=== PATIENT | female | born 1970 | race Hispanic/Latino ===

== ENCOUNTER 2020-02-21 10:20 | Inpatient (IN) | payer OTHER, SELFPAY ==
[~2020-02-21] VITALS: Ht 160 cm; Wt 74.0 kg
[2020-02-21] MEDS ORDERED: CEFTRIAXONE SODIUM 1 GM ONE (11:03)
[2020-02-21] MEDS ORDERED: AZITHROMYCIN 250 MG TABLET PO ONE (11:04)
[2020-02-21] MEDS ORDERED: ACETAMINOPHEN EXTRA STRENGTH 500 MG TABLET ONE (11:04)
[2020-02-21] MEDS ORDERED: LACTATED RINGERS 1000ML 1,000 ML IV SCH (13:09)
[2020-02-21] MEDS ORDERED: AZITHROMYCIN 500MG+NS 250ML 250 ML IV SCH (13:15)
[2020-02-21] MEDS ORDERED: ACETAMINOPHEN 325 MG TAB PO PRN (13:15)
[2020-02-21] MEDS ORDERED: DiphenhydrAMINE HCL 50 MG/ML VIAL IV PRN (13:15)
[2020-02-21] MEDS ORDERED: DIPHENHYDRAMINE HCL 25 MG CAPSULE PO PRN (13:15)
[2020-02-21] MEDS ORDERED: ONDANSETRON HCL 4 MG/2 ML VIAL IV PRN (13:15)
[2020-02-21] MEDS ORDERED: LACTULOSE 20 GM/30 ML UDCUP PO PRN (13:15)
[2020-02-21] MEDS: CEFTRIAXONE SODIUM 1 GM IV SCH (13:15)
[2020-02-21] MEDS ORDERED: NITROGLYCERIN 0.4 MG SL TAB SL PRN (13:15)
[2020-02-21] MEDS ORDERED: MAG HYDROX/AL HYDROX/SIMETH ES 30 ML SUSP UDCUP PO PRN (13:15)
[2020-02-21] MEDS ORDERED: ERGOCALCIFEROL (VITAMIN D2) 50,000 UNIT CAPSULE PO SCH (13:30)
[2020-02-21] MEDS ORDERED: ENOXAPARIN SODIUM 40 MG/0.4 ML SYRINGE SQ ONE (14:29)
[2020-02-21] MEDS ORDERED: METHYLPREDNISOLONE SOD SUCC 40MG/ML 1ML ONE ×2 (15:30→21:15)
[2020-02-21] MEDS ORDERED: ONDANSETRON HCL 4 MG/2 ML VIAL ONE (18:19)
[2020-02-22] MEDS ORDERED: LACTATED RINGERS 1000ML 1,000 ML IV ONE (05:32)
[2020-02-22] MEDS ORDERED: METHYLPREDNISOLONE SOD SUCC 40MG/ML 1ML ONE ×4 (05:32→20:40)
[2020-02-22] MEDS ORDERED: AZITHROMYCIN 500MG+NS 250ML 250 ML IV ONE (08:11)
[2020-02-22] MEDS ORDERED: CEFTRIAXONE SODIUM 1 GM ONE ×2 (08:11→20:40)
[2020-02-22] MEDS ORDERED: SODIUM CHLORIDE 0.9% 100 ML IV ONE (08:11)
[2020-02-22] MEDS ORDERED: ENOXAPARIN SODIUM 40 MG/0.4 ML SYRINGE SQ ONE (12:04)
[2020-02-22] MEDS ORDERED: DOXYCYCLINE HYCLATE 100 MG TABLET PO ONE ×2 (12:08→20:40)
[2020-02-22] MEDS: CEFTRIAXONE SODIUM 1 GM IV SCH (13:15)
--- NOTE | 2020-02-22 17:59 | NUR ---
INITIAL SW spoke to patient. Patient lives with spouse, Moustapha Cuellar, [phone]. She has no home services or DME. 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 Patient is able to complete ADL's independently and drives. PCP is MD at [facility]. Pharmacy is [facility]. Patient has no insurance or benefits. He is not a [place] citizen but is a legal resident. Patient was educated on [employer] $4 medication program and [employer] $5 medication program. Patient is being assisted by [facility] for financial matters. Addendum: 02/22/20 at 1802 by AARON JOINER Amended: Links added.
[2020-02-22] MEDS ORDERED: FAMOTIDINE/PF 20 MG/2 ML VIAL IV ONE (20:41)
[2020-02-23] MEDS ORDERED: DOXYCYCLINE HYCLATE 100 MG TABLET PO ONE (00:02)
[2020-02-23] MEDS ORDERED: METHYLPREDNISOLONE SOD SUCC 40MG/ML 1ML ONE ×2 (00:03→11:11)
[2020-02-23] MEDS ORDERED: METHYLPREDNISOLONE SOD SUCC 125MG/2ML VIAL ONE (05:39)
[2020-02-23] MEDS: ZINC SULFATE 220 CAPSULE PO SCH (09:00)
[2020-02-23] MEDS: LACTOBACILLUS RHAMNOSUS GG 1 EACH CAP.SPRINK PO SCH (09:00)
[2020-02-23] MEDS: ENOXAPARIN SODIUM 40 MG/0.4 ML SYRINGE SQ SCH ×2 (09:00→20:13)
[2020-02-23] MEDS: FAMOTIDINE/PF 20 MG/2 ML VIAL IV SCH ×2 (09:00→20:13)
[2020-02-23] MEDS: ASCORBIC ACID 500 MG TAB PO SCH (09:00)
[2020-02-23] MEDS: DOXYCYCLINE 100MG+NS 250ML 250 ML IV SCH ×2 (09:30→21:53)
[2020-02-23] MEDS ORDERED: ENOXAPARIN SODIUM 40 MG/0.4 ML SYRINGE SQ ONE (11:12)
[2020-02-23] MEDS ORDERED: CEFTRIAXONE SODIUM 1 GM ONE (11:12)
[2020-02-23] MEDS ORDERED: FAMOTIDINE/PF 20 MG/2 ML VIAL IV ONE (11:13)
[2020-02-23] MEDS: CEFTRIAXONE SODIUM 1 GM IV SCH (13:15)
[2020-02-23] MEDS: METHYLPREDNISOLONE SOD SUCC 40MG/ML 1ML IVP SCH ×2 (13:15→18:20)
[2020-02-23 19:24] VITALS: BP 104/68; PULSE 74; RESP 22; TEMP 98.3
[2020-02-23 19:30] VITALS: BP 115/82; PULSE 70; RESP 18; TEMP 98
[2020-02-23 23:00] VITALS: BP 109/70; PULSE 75; RESP 18; TEMP 98.2
[2020-02-24] VITALS (7 sets, daily range): BP systolic 103–124; BP diastolic 54–76; PULSE 63–88; RESP 18–20; TEMP 97.4–98.5
[2020-02-24] MEDS: CEFTRIAXONE SODIUM 1 GM IV SCH ×2 (01:15→13:15)
[2020-02-24] MEDS: ASCORBIC ACID 500 MG TAB PO SCH (09:00)
[2020-02-24] MEDS: ZINC SULFATE 220 CAPSULE PO SCH (09:56)
[2020-02-24] MEDS: FAMOTIDINE/PF 20 MG/2 ML VIAL IV SCH ×2 (09:56→20:14)
[2020-02-24] MEDS: LACTOBACILLUS RHAMNOSUS GG 1 EACH CAP.SPRINK PO SCH (09:56)
[2020-02-24] MEDS: ENOXAPARIN SODIUM 40 MG/0.4 ML SYRINGE SQ SCH (09:57)
[2020-02-24] MEDS: DOXYCYCLINE 100MG+NS 250ML 250 ML IV SCH ×2 (10:05→20:14)
[2020-02-24] MEDS: GUAIFENESIN-DM 200/20 MG 10 ML PO PRN ×2 (10:07→18:27)
[2020-02-24] MEDS ORDERED: ALBUTEROL INHALER 90MCG/INH IH PRN (11:00)
[2020-02-24] MEDS: METHYLPREDNISOLONE SOD SUCC 40MG/ML 1ML IVP SCH (20:14)
[2020-02-24] MEDS: GUAIFENESIN 600 MG TABLET.ER PO SCH (20:14)
[2020-02-25] VITALS (7 sets, daily range): BP systolic 109–134; BP diastolic 62–89; PULSE 64–85; RESP 18–24; TEMP 97.6–98.7
[2020-02-25] MEDS: CEFTRIAXONE SODIUM 1 GM IV SCH ×3 (01:16→23:43)
[2020-02-25] MEDS: METHYLPREDNISOLONE SOD SUCC 40MG/ML 1ML IVP SCH ×2 (07:30→20:52)
[2020-02-25] MEDS: GUAIFENESIN 600 MG TABLET.ER PO SCH ×2 (07:30→20:52)
[2020-02-25] MEDS: DOXYCYCLINE 100MG+NS 250ML 250 ML IV SCH ×2 (07:30→20:52)
[2020-02-25] MEDS: FAMOTIDINE/PF 20 MG/2 ML VIAL IV SCH ×2 (07:30→20:52)
[2020-02-25] MEDS: ENOXAPARIN SODIUM 40 MG/0.4 ML SYRINGE SQ SCH (07:30)
[2020-02-25] MEDS: ZINC SULFATE 220 CAPSULE PO SCH (07:30)
[2020-02-25] MEDS: ASCORBIC ACID 500 MG TAB PO SCH (07:31)
[2020-02-25] MEDS: LACTOBACILLUS RHAMNOSUS GG 1 EACH CAP.SPRINK PO SCH (07:31)
--- NOTE | 2020-02-25 07:45 | NUR ---
ASSESSMENT PT IS AAOX3 DENIES CP DENIES NV DENIES SOB WHILE AT REST, BREATHING PATTERN IS EVEN AND UNLABORED. AM MEDS GIVEN, CALL LIGHT WITHIN REACH.
--- NOTE | 2020-02-25 13:00 | NUR ---
STATUS SITTING UP IN CHAIR, EATING LUNCH NO COMPLAINTS AT THIS TIME. CALL LIGHT WITHIN REACH.
[2020-02-26] VITALS (7 sets, daily range): BP systolic 114–124; BP diastolic 67–88; PULSE 61–82; RESP 18–20; TEMP 97.4–98.5
[2020-02-26] MEDS: FAMOTIDINE/PF 20 MG/2 ML VIAL IV SCH ×2 (08:54→20:16)
[2020-02-26] MEDS: GUAIFENESIN 600 MG TABLET.ER PO SCH ×2 (08:55→20:16)
[2020-02-26] MEDS: METHYLPREDNISOLONE SOD SUCC 40MG/ML 1ML IVP SCH ×2 (08:55→20:16)
[2020-02-26] MEDS: ZINC SULFATE 220 CAPSULE PO SCH (08:55)
[2020-02-26] MEDS: LACTOBACILLUS RHAMNOSUS GG 1 EACH CAP.SPRINK PO SCH (08:55)
[2020-02-26] MEDS: ASCORBIC ACID 500 MG TAB PO SCH (08:55)
[2020-02-26] MEDS: ENOXAPARIN SODIUM 40 MG/0.4 ML SYRINGE SQ SCH (08:59)
[2020-02-26] MEDS: DOXYCYCLINE HYCLATE 100 MG TABLET PO SCH ×2 (08:59→20:16)
--- NOTE | 2020-02-26 13:19 | NUR ---
DC PLAN GAVE PATIENT INFO REGARDING NEED FOR 02. NOW THE ONLY PLACE FOUND FOR SELF PAY IS 250 A MONTH. SAID SHE NEEDS TO TALK TO FAMILY AND FRIENDS TO SEE IF THEY CAN COME UP WITH THE [facility]. LET FAITH PATIÑO AND JENNIFER DIRECTOR KNOW OF CONVERSATION. TOLD PATIENT TO LET NURSE KNOW IF OKAY TO SEND REFERRAL. CM WILL CONTINUE TO FOLLOW. Addendum: 02/26/20 at 1320 by LINDA MORE RN CM Amended: Links added.
--- NOTE | 2020-02-26 14:53 | NUR ---
DC PLAN PATIENT STILL HAS NOT MADE UP MIND REGARDING 02. ASKED NURSE TO ASK PATIENT WHEN THEY GO BACK IN IF THEY FOUND SUPPORT FOR THE 250. CM WILL CONTINUE TO FOLLOW.
[2020-02-26] MEDS: CEFTRIAXONE SODIUM 1 GM IV SCH (15:08)
[2020-02-27] MEDS: CEFTRIAXONE SODIUM 1 GM IV SCH (00:44)
[2020-02-27 04:12] VITALS: BP 124/62; PULSE 64; RESP 20; TEMP 97.9
[2020-02-27 08:00] VITALS: BP 111/71; PULSE 65; RESP 18; TEMP 97.7
[2020-02-27] MEDS: GUAIFENESIN 600 MG TABLET.ER PO SCH ×2 (08:57→21:41)
[2020-02-27] MEDS: ASCORBIC ACID 500 MG TAB PO SCH (08:57)
[2020-02-27] MEDS: FAMOTIDINE/PF 20 MG/2 ML VIAL IV SCH ×2 (08:57→21:42)
[2020-02-27] MEDS: ZINC SULFATE 220 CAPSULE PO SCH (08:57)
[2020-02-27] MEDS: DOXYCYCLINE HYCLATE 100 MG TABLET PO SCH (08:57)
[2020-02-27] MEDS: LACTOBACILLUS RHAMNOSUS GG 1 EACH CAP.SPRINK PO SCH (08:57)
[2020-02-27] MEDS: METHYLPREDNISOLONE SOD SUCC 40MG/ML 1ML IVP SCH ×2 (08:58→21:42)
[2020-02-27] MEDS: ENOXAPARIN SODIUM 40 MG/0.4 ML SYRINGE SQ SCH (08:59)
--- NOTE | 2020-02-27 09:42 | NUR ---
DC PLAN VISITED WITH PATIENT. PATIENT SAID NOT ABLE TO AFFORD 02. SPOKE TO FAITH SAID TO RE EVAL FOR HOME O2. ORDER PLACED. Addendum: 02/27/20 at 0944 by LINDA MORE RN CM Amended: Links added.
[2020-02-27 12:00] VITALS: BP 102/61; PULSE 70; RESP 18; TEMP 98.1
[2020-02-27 15:30] VITALS: BP 131/66; PULSE 78; RESP 18; TEMP 98.4
[2020-02-27 19:55] VITALS: PULSE 88; RESP 20
[2020-02-27 20:00] VITALS: BP 129/56; PULSE 76; RESP 19; TEMP 98.1
[2020-02-28] VITALS (8 sets, daily range): BP systolic 94–118; BP diastolic 44–77; PULSE 59–84; RESP 18–20; TEMP 97.6–98.2
--- NOTE | 2020-02-28 05:20 | NUR ---
PT IS LAYING IN BED, WITH NO CONCERNS OR COMPLAINTS. PT IS AOX3 AND WITHOUT PAIN. WILL CONTINUE TO MONITOR
[2020-02-28] MEDS: LACTOBACILLUS RHAMNOSUS GG 1 EACH CAP.SPRINK PO SCH (08:58)
[2020-02-28] MEDS: FAMOTIDINE/PF 20 MG/2 ML VIAL IV SCH ×2 (08:58→20:55)
[2020-02-28] MEDS: ASCORBIC ACID 500 MG TAB PO SCH (08:58)
[2020-02-28] MEDS: METHYLPREDNISOLONE SOD SUCC 40MG/ML 1ML IVP SCH ×2 (08:58→20:55)
[2020-02-28] MEDS: GUAIFENESIN 600 MG TABLET.ER PO SCH ×2 (08:59→20:58)
[2020-02-28] MEDS: ZINC SULFATE 220 CAPSULE PO SCH (08:59)
[2020-02-28] MEDS: ENOXAPARIN SODIUM 40 MG/0.4 ML SYRINGE SQ SCH (09:00)
[2020-02-28] MEDS: ACETAMINOPHEN 325 MG TAB PO PRN (17:30)
[2020-02-29] VITALS (8 sets, daily range): BP systolic 91–106; BP diastolic 53–71; PULSE 58–78; RESP 18–20; TEMP 96.5–98
--- NOTE | 2020-02-29 04:52 | NUR ---
PT IS RESTING COMFORTABLY IN BED. PT HAS NO COMPLAINTS OF PAIN OR DISCOMFORT. PT IS AWAITING DISCHARGE. WILL CONTINUE TO MONITOR
[2020-02-29] MEDS: LACTOBACILLUS RHAMNOSUS GG 1 EACH CAP.SPRINK PO SCH (08:14)
[2020-02-29] MEDS: ASCORBIC ACID 500 MG TAB PO SCH (08:14)
[2020-02-29] MEDS: GUAIFENESIN 600 MG TABLET.ER PO SCH ×2 (08:15→20:47)
[2020-02-29] MEDS: METHYLPREDNISOLONE SOD SUCC 40MG/ML 1ML IVP SCH (08:15)
[2020-02-29] MEDS: ZINC SULFATE 220 CAPSULE PO SCH (08:15)
[2020-02-29] MEDS: FAMOTIDINE/PF 20 MG/2 ML VIAL IV SCH ×2 (08:15→20:47)
[2020-02-29] MEDS: ENOXAPARIN SODIUM 40 MG/0.4 ML SYRINGE SQ SCH (08:16)
[2020-02-29] MEDS: ACETAMINOPHEN 325 MG TAB PO PRN (08:30)
[2020-03-01] VITALS (8 sets, daily range): BP systolic 86–103; BP diastolic 52–68; PULSE 60–73; RESP 18–20; TEMP 97.2–98
--- NOTE | 2020-03-01 02:20 | NUR ---
PT RESTING IN BED. NO COMPLAINTS OR CONCERNS AND NO REPORTS OF PAIN. WILL CONTINUE TO MONITOR
--- NOTE | 2020-03-01 08:00 | NUR ---
ENCOUNTERED PATIENT SITTING ON THE CHAIR ON 2L OF O2 PER NASAL CANNULA. SHE VOICED THAT SHE FEELS A BIT BETTER TODAY COMPARED TO YESTERDAY SHE STILL GETS SHORT OF BREATH OFF THE O2. FULL ASSESSMENT DONE. ENCOURAGED PRONING AND DEEP BREATHING EXERCISES. CALL LIGHT WITHIN REACH. MAINTAINED ENHANCED ISOLATION FOR POSITIVE COVID-19.
[2020-03-01] MEDS: FAMOTIDINE/PF 20 MG/2 ML VIAL IV SCH ×2 (08:14→21:09)
[2020-03-01] MEDS: GUAIFENESIN 600 MG TABLET.ER PO SCH ×2 (08:14→21:09)
[2020-03-01] MEDS: ZINC SULFATE 220 CAPSULE PO SCH (08:14)
[2020-03-01] MEDS: ENOXAPARIN SODIUM 40 MG/0.4 ML SYRINGE SQ SCH (08:14)
[2020-03-01] MEDS: LACTOBACILLUS RHAMNOSUS GG 1 EACH CAP.SPRINK PO SCH (08:14)
[2020-03-01] MEDS: ASCORBIC ACID 500 MG TAB PO SCH (08:14)
[2020-03-01] MEDS: DEXAMETHASONE 4 MG TAB PO SCH (08:15)
[2020-03-01] MEDS ORDERED: POLYETHYLENE GLYCOL 3350 17 GM POWD.PACK PO PRN (08:45)
--- NOTE | 2020-03-01 09:10 | NUR ---
DR. SHINE IS MAKING HIS ROUNDS.
[2020-03-01] MEDS: ACETAMINOPHEN 325 MG TAB PO PRN (10:10)
--- NOTE | 2020-03-01 16:50 | NUR ---
DR. MCLAUGHLIN IS MAKING ROUNDS OUTSIDE PATIENT'S ROOM. WE PLAN TO WEAN PT OFF OXYGEN SHE CANNOT AFFORD HOME O2. NO CHANGE IN TREATMENT AT THIS TIME. D/C PLANNING FOR HOME.
--- NOTE | 2020-03-01 18:44 | NUR ---
WEANED PATIENT OFF O2. O2 SAT ON ROOM AIR: 95%. PATIENT DENIES SOB.
[2020-03-02 03:00] VITALS: BP 96/62; PULSE 68; RESP 18; TEMP 97.8
[2020-03-02 07:40] VITALS: PULSE 63; RESP 18
[2020-03-02] MEDS: FAMOTIDINE/PF 20 MG/2 ML VIAL IV SCH (07:55)
[2020-03-02] MEDS: ASCORBIC ACID 500 MG TAB PO SCH (07:55)
[2020-03-02] MEDS: GUAIFENESIN 600 MG TABLET.ER PO SCH (07:57)
[2020-03-02] MEDS: DEXAMETHASONE 4 MG TAB PO SCH (07:57)
[2020-03-02] MEDS: ZINC SULFATE 220 CAPSULE PO SCH (07:57)
[2020-03-02] MEDS: LACTOBACILLUS RHAMNOSUS GG 1 EACH CAP.SPRINK PO SCH (07:57)
[2020-03-02] MEDS: ENOXAPARIN SODIUM 40 MG/0.4 ML SYRINGE SQ SCH (07:58)
[2020-03-02 08:00] VITALS: BP 104/66; PULSE 65; RESP 18; TEMP 98.2
[2020-03-02 11:30] VITALS: BP 83/53; PULSE 68; RESP 18; TEMP 98.1
--- NOTE | 2020-03-02 15:10 | NUR ---
DISCHARGE INSTRUCTIONS GIVEN TO PATIENT, MADE AWARE OF TELE MEDICINE FOLLOW UP WITH DR. LI'S FLORAL DESIGNER. MADE AWARE OF NEED TO FOLLOW UP WITH VILMA JHA IN 3-5 DAYS. PATIENT VOICED SHE DOES NOT HAVE INSURANCE WHEN GOING OVER THE DISCHARGE MEDICATIONS. INFORMED PATIENT PER DR. LINTON IF SHE CANNOT AFFORD ELIQUIS SHE MAY TAKE ASPIRIN 81MG DAILY FOR 14 DAYS. PATIENT VOICED UNDERSTANDING. MADE AWARE OF NEW RX FOR DECADRON. PATIENT AT THIS TIME AMBULATING IN ROOM, SATURATING 98% ON ROOM AIR. DENIES ANY SHORTNESS OF BREATH. IV AND TELE REMOVED. PATIENT WILL BE PICKED UP BY HER
--- NOTE | 2020-03-02 16:01 | NUR ---
RDSCREEN - LOS X 10 Pt positive for COVID-19. PNA. Pt with Regular diet order in place. Vitamin C, ZnSO4 in place. Recommend Continue current diet order. Recommend 60mL ProMod QD for supplemental protein d/t increased protein needs. RD to continue to monitor. Please notify as additional nutrition concerns arise. Thank you.
== END 2020-03-02 16:20 | disposition home or self-care (01) | DRG 177 ==
LOC: EDH 10:20 → EDHIP 10:21 → 2AH 02-23 17:46
PROVIDERS: ADMIT Family Medicine; ATTEND Family Medicine
DX: U07.1 COVID-19 (principal); J96.01 Acute respiratory failure with hypoxia; J12.89 Other viral pneumonia; K59.00 Constipation, unspecified